=== PATIENT | female | born 1980 | race Caucasian/White ===

== ENCOUNTER 2019-05-17 16:25 | Emergency (ER) | payer OTHER | END 2019-05-17 19:52 | disposition home or self-care (01) | LOC: FTE 16:25 | DX: M79.604 Pain in right leg (principal); I10 Essential (primary) hypertension; E11.9 Type 2 diabetes mellitus without complications; Z79.84 Long term (current) use of oral hypoglycemic drugs | CPT/HCPCS: 73510; 81025; 93971; 99284-25 ==